=== PATIENT | male | born 1965 | race Caucasian/White ===

== ENCOUNTER 2017-10-07 04:20 | Emergency (ER) | payer OTHER ==
[~2017-10-07] VITALS: Ht 167.6 cm; Wt 108.9 kg
[2017-10-07 04:20] VITALS: BP_SYST 160
--- NOTE | 2017-10-07 04:20 | NUR ---
Brought in by law Officer in custody for medical clearance and blood alcohol draw. Patient to ER hallway to [facility] for evaluation. Side rails up.
--- NOTE | 2017-10-07 04:30 | NUR ---
Patient brought to ER by law enforcement for medical clearance and blood alcohol draw. Per [place] enforcement, "routine traffic stop" Patient has no medical complaints. Hx DM takes Metformin. AAOx4, unlabored breathing, no signs of acute distress.
--- NOTE | 2017-10-07 04:34 | NUR ---
ER MD Correa at bedside evaluating the patient
--- NOTE | 2017-10-07 04:47 | NUR ---
Written and verbal consent obtained from patient for blood alcohol, name and verified by patient. Disinfected patient's skin with iodine that did not contain alcohol or other volatile organic compound. Collected the blood from the subject named by venipuncture, in the presence of Officer [id number]. Used a sterile, dry hypodermic needle and dry vacuum blood collection. The dry vacuum blood collection was supplied by the officer named above. Withdrew a specimen of blood from right antecubital vein of the subject named above. Inverted the blood tube several times to ensure that the preservative and anticoagulant were thoroughly mixed in the blood specimen. I initialed the blood tube label for identification. The labeled blood tube was handed directly to the Officer named above. The blood tube stopper remained in place while I had possession of the blood tube. The Officer placed tube into envelope and sealed it in my presence. Envelope initialed by myself and Officer named above. Patient tolerated well, bandage applied, and bleeding controlled.
--- NOTE | 2017-10-07 04:49 | NUR ---
ER MD Correa aware of BP states "OK to discharge"
[2017-10-07 04:50] VITALS: BP_SYST 160
--- NOTE | 2017-10-07 04:50 | NUR ---
Patient discharged in custody of law enforcement, given written and verbal discharge instructions and verbalizes understanding. Patient in stable condition. ID arm band removed. Patient educated on pain management and to follow up with PMD. Pain Scale 0/10. Opportunity for questions provided and answered. Patient advised to continue Metformin prescription and to check blood glucose. Patient advised to see primary physician GLADYS for high blood pressure management. Patient verbalizes understanding.
== END 2017-10-07 04:50 ==
LOC: SED 04:20
DX: F10.10 Alcohol abuse, uncomplicated (principal); E11.9 Type 2 diabetes mellitus without complications
CPT/HCPCS: 99283